=== PATIENT | male | born 1955 | race Caucasian/White ===

== ENCOUNTER 2025-07-24 04:25 | Inpatient (IN) | payer OTHER, MEDICARE ==
[~2025-07-24] VITALS: Ht 185.4 cm; Wt 72.4 kg
--- NOTE | 2025-07-24 04:52 | ECG ---
[facility] Test Date: 2025-07-24 Test Time: 04:30:34 Pat Name: YUE ATKINS Department: ED Room: 0217T Gender: M Vehicle Body Builder: KIMO : [id number] Requested By: LUISITO PINON Order Number: [id number] Reading MD: Miguel A De Leon Measurements Intervals [place] Rate: 69 P: 51 KS: 150 QRS: 64 QRSD: 93 T: 109 QT: 381 QTc: 408 Interpretive Statements Sinus rhythm Nonspecific T abnormalities, lateral leads Electronically Signed On 07-26-2025 15:01:45 PST by Miguel A De Leon Please click the below link to view image of tracing.
[2025-07-24 04:55] VITALS: PULSE 77; RESP 18; O2SAT 98
--- NOTE | 2025-07-24 04:55 | ED.PDOC ---
HPI Comments 70 year old male who came to ER via EMS for chest pain. Patient has been having intermittent episodes of chest pains for the past 3 days, is severely worse with a few hours ago so patient went to [facility]. Diagnosis done showed elevated troponin levels. So patient transferred here for further evaluation and management Chief Complaint: Chest Pain Time Seen by MD: 04:55 Reviewed Notes: [employer] Efficient [employer]er Notes Allergies: Coded Allergies: NO KNOWN ALLERGIES (Unverified , 07/24/25) Information Source: Patient Mode of Arrival: EMS Severity: Moderate Timing: Days Duration: Intermittent Past Medical History PAST MEDICAL HISTORY: COPD, High Lipids, HTN Surgical History: Denies all surgeries Family History Family History: Reviewed,noncontributory to illness Social History Smoker: Non-Smoker Alcohol: Denies ETOH Use Drugs: Denies Drug Use Lives In: Home Constitutional: denies: chills, diaphoresis, fatigue, fever, malaise, sweats, weakness, others EENTM: denies: blurred vision, double vision, ear bleeding, ear discharge, ear drainage, ear pain, ear ringing, eye pain, eye redness, hearing loss, mouth pain, mouth swelling, nasal discharge, nose bleeding, nose congestion, nose pain, photophobia, tearing, throat pain, throat swelling, voice changes, others Respiratory: reports: shortness of breath; denies: cough, hemoptysis, orthopnea, SOB at rest, SOB with excertion, stridor, wheezing, others Cardiovascular: reports: chest pain; denies: dizzy spells, diaphoresis, Dyspnea on exertion, edema, irregular heart beat, left arm pain, lightheadedness, palpitations, PND, syncope, others Gastrointestinal: denies: abdomen distended, abdominal pain, blood streaked bowels, constipated, diarrhea, dysphagia, difficulty swallowing, hematemesis, melena, nausea, poor appetite, poor fluid intake, rectal bleeding, rectal pain, vomiting, others Genitourinary: denies: burning, dysuria, flank pain, frequency, hematuria, incontinence, penile discharge, penile sore, pain, testicle pain, testicle swelling, urgency, others Neurological: denies: dizziness, fainting, headache, left sided numbness, left sided weakness, numbness, paresthesia, pre-existing deficit, right sided numbnes s, right sided weakness, seizure, speech problems, tingling, tremors, weakness, others Musculoskeletal: denies: back pain, gout, joint pain, joint swelling, muscle pain, muscle stiffness, neck pain, others Integumetry: denies: bruises, change in color, change in hair/nails, dryness, laceration, lesions, lumps, rash, wounds, others Allergic/Immunocompromised: denies: Difficulty Healing, Frequent Infections, Hives, Itching, others Hematologic/Lymphatic: denies: anemia, blood clots, easy bleeding, easy bruising, swollen glands, others Endocrine: denies: excessive hunger, excessive sweating, excessive thirst, excessive urination, flushing, intolerance to cold, intolerance to heat, unexplained weight gain, unexplained weight loss, others Psychiatric: denies: anxiety, bipolar disorder, depression, hopeless, panic disorder, schizophrenia, sleepless, suicidal, others Physical Exam General Appearance: No Apparent Distress, Normal HEENT: Normal ENT Inspection, Pharynx Normal, TMs Normal Neck: Full Range of Motion, Non-Tender, Normal, Normal Inspection Respiratory: Chest Non-Tender, Lungs Clear, No Accessory Muscle Use, No Respiratory Distress, Normal Breath Sounds Cardiovascular: No Edema, No JVD, No Murmur, No Gallop, Normal Peripheral Pulses, Regular Rate/Rhythm Breast Exam: Deferred Gastrointestinal: No Organomegaly, Non Tender, No Pulsatile Mass, Normal Bowel Sounds, Soft Genitalia: Deferred Pelvic: Deferred Rectal: Deferred Extremities: No calf tenderness, Normal capillary refill, Normal inspection, Normal range of motion, Non-tender, No pedal edema Musculoskeletal : Apperance: Normal Neurologic: Alert, pinion polisher II-XII nml as Tested, No Motor Deficits, Normal Affect, Normal Mood, No Sensory Deficits Cerebellar Function: Normal Reflexes: Normal Skin: Dry, Normal Color, Warm Lymphatic: No Adenopathy Was a procedure done? Was a procedure done?: No CP Differential Dx Differential Diagnosis: Angina, Anxiety / Panic Attack Differential Diagnosis: Angina, Chest Wall Pain, Costochondritis, Esophageal reflux/spasm, Gastritis, Myocardial Infarction X-Ray, Labs, Meds, VS Vital Signs Date Time Temp Pulse Resp B/P (MAP) Pulse Ox O2 Delivery O2 Flow Rate FiO2 07/24/25 05:21 70 07/24/25 04:55 98.1 75 18 144/94 (111) 98 98.1 07/24/25 04:55 77 18 98 Room Air* 0 21 07/24/25 04:40 97.6 74 16 136/84 96 97.6 07/24/25 04:30 69 Time of 1ST Reevaluation: 04:40 Reevaluation 1ST: Unchanged Patient Education/Counseling: Diagnosis, Treatment Family Education/Counseling: No Family Present SEPSIS Sepsis Screen Physician Orders Complete Blood Count (07/24/25 04:37) Chest Portable (07/24/25 04:37) Comprehensive Metabolic Panel (07/24/25 04:37) PTPTT (07/24/25 04:37) B-Type Natriuretic Peptide (07/24/25 04:37) Troponin-I Hs (07/24/25 04:37) Troponin-I Hs (07/24/25 05:37) Troponin-I Hs (07/24/25 07:37) Vital Signs Date Time Temp Pulse Resp B/P (MAP) Pulse Ox O2 Delivery O2 Flow Rate FiO2 07/24/25 05:21 70 07/24/25 04:55 98.1 75 18 144/94 (111) 98 98.1 07/24/25 04:55 77 18 98 Room Air* 0 21 07/24/25 04:40 97.6 74 16 136/84 96 97.6 07/24/25 04:30 69 Departure 1 Departure Time of Disposition: 05:59 Impression: Primary Impression: Acute coronary syndrome Disposition: ADMITTED INPATIENT Admit to: [facility] Condition: Guarded Discharged With: Self Comments Patient transferred from outside hospital with chest pain and elevated troponin. Patient was given some morphine prior to arrival and arrives chest pain-free. Repeat lab work and chest x-ray were performed. Patient will need to be admitted for supportive care and further cardiac workup Critical Care Note Critical Care Time?: Yes (35 min-critical care time only) Critical care comment: Total critical care time: Approximately 36 minutes Due to a high probability of clinically significant, life threatening deterioration, the patient required my highest level of preparedness to intervene emergently and I personally spent this critical care time directly and personally managing the patient. This critical care time included obtaining a history; examining the patient; pulse oximetry; ordering and review of studies; arranging urgent treatment with development of a management plan; evaluation of patient's response to treatment; frequent reassessment; and, discussions with other providers. This critical care time was performed to assess and manage the high probability of imminent, life-threatening deterioration that could result in multi-organ failure. It was exclusive of separately billable procedures and treating other patients. Stability Stability form required: No Heart Score Heart Score: Heart Score Response (Comments) Value History Moderate Suspicious 1 EKG Repolarization Disturb 1 Age >65 2 Risk Factors >3 or Hx ASHD 2 Troponin 1-2 x's Normal limit 1 Total 7 I personally scribed for LUISITO PINON MD ([email or web address]) on 07/24/25 at 04:55. Electronically submitted by William Montilla ([email or web address]). LUISITO PINON MD Jul 24, 2025 04:55
--- NOTE | 2025-07-24 05:40 | DVH ---
CHEST RADIOGRAPH Indication: SOB Technique: Single frontal view of the chest was obtained Comparison: XR CHEST 1 VIEW on DOS: 07/23/25, XR CHEST 1 VIEW on DOS: 06/06/21 IMPRESSION: There are low lung volumes. Basilar interstitial prominence. No focal airspace opacity, effusion, or pneumothorax.
[2025-07-24 06:54] LABS: Alanine Aminotransferase 13 U/L (7-40); Alkaline Phosphatase 89 U/L (46-116); Anion Gap 8 (5-15); BUN/Creatinine Ratio 9.8 (10.0-20.0); Blood Urea Nitrogen 10 mg/dL (9-23); Calcium 9.5 mg/dL (8.7-10.4); Carbon Dioxide 22 mmol/L (20-31); Glucose 93 mg/dL (74-106); Potassium 4.7 mmol/L (3.5-5.1); Sodium 139 mmol/L (136-145); Total Protein 6.9 g/dL (5.7-8.2)
[2025-07-24 06:55] LABS: Albumin 4.5 g/dL (3.2-4.8); Bilirubin, Total 0.7 mg/dL (0.2-1.0)
[2025-07-24 07:02] LABS: Chloride 109 mmol/L (98-107)
[2025-07-24] MEDS: MORPHINE SULFATE 4 MG/ML SYR/VIAL IV ONE (07:02)
[2025-07-24] MEDS: ONDANSETRON HCL 4 MG/2 ML VIAL IV ONE (07:02)
[2025-07-24] MEDS: NITROGLYCERIN 0.4 MG SL TAB SL ONE ×2 (07:03)
[2025-07-24] MEDS ORDERED: MORPHINE SULFATE INJ 2 MG/ml SYRG IV PRN (08:30)
[2025-07-24] MEDS ORDERED: NITROGLYCERIN 0.4 MG SL TAB SL PRN (08:30)
[2025-07-24 08:35] VITALS: PULSE 90; RESP 15; O2SAT 94
[2025-07-24 09:00] VITALS: BP 118/86; PULSE 90; RESP 15; TEMP 98; O2SAT 94
[2025-07-24 09:07] LABS: Hematocrit 49.3 % (41.0-53.0); Hemoglobin 16.3 g/dL (13.5-17.5); Mean Corpuscular Hemoglobin 30.4 pg (28.0-32.0); Mean Corpuscular Volume 91.5 fL (80.0-100.0); Nucleated Red Blood Cells % 0.1 %
--- NOTE | 2025-07-24 09:12 | CONS ---
Pharmacy Clinical Information: HEPARIN PER ACS PROTOCOL: APTT and CBC drawn at 0844 on to start Heparin per ACS protocol. Bolus of 4000 units + starting rate of 1000 units per hour (10mL/hr). Orders read back and confirmed with ARIELA Brar @0904. Next APTT scheduled for 1500. BRENT MCKINNON PHARMACIST Jul 24, 2025 09:12
[2025-07-24] MEDS: HEPARIN DRIP/D5W 100UNITS/ML 250 ML IV SCH ×3 (09:13→16:18)
[2025-07-24] MEDS: HEPARIN SODIUM (PORCINE) 5000 UNITS/ML 1ML VIAL IV ONE ×2 (09:14→16:17)
[2025-07-24] MEDS: PANTOPRAZOLE 40 MG/10 ML VIAL INJ IV SCH (09:15)
[2025-07-24 09:21] LABS: INR 1.03 (0.9-1.15); Partial Thromboplastin Time 26.9 SEC (24.5-34.5); Prothrombin Time 10.9 sec (9.3-11.8)
[2025-07-24] MEDS: ATORVASTATIN 20 MG TAB PO ONE (09:40)
--- NOTE | 2025-07-24 09:44 | DVHHPRES ---
History of Present Illness Resident Creating Document: ELIS ORTIZ RESIDENT History of Present Illness Patient is a 70-year-old male was brought by EMS to the ED with a chief complaint of chest pain and was transferred from [facility]. Patient reported she started to have chest pain about 3-4 days ago when he was moving in his mattress, reported chest pain to be substernal across his whole chest, pressure-like, nonradiating, intermittent worsens on exertion and improves with rest, improved on sublingual nitroglycerin. Patient has a history of COPD, 50 pack year smoking history but denied any history of previous [place], stroke, hypertension. On arrival patient's EKG was seen to be sinus rhythm without any ST or T-wave changes, troponins elevated and trended up. Patient will be admitted for further evaluation of likely NSTEMI type 1 Medical history: COPD, hyperlipidemia, PTSD Surgical history: Left knee surgery, jaw surgery, cervical spine surgery Social history: Patient quit drinking about 4 months ago, quit smoking 6-7 years ago but has a history of 50 pack year tobacco use, occasional marijuana use, denies any other drug use Family history: Mother has diabetes, brain hemorrhage in father Home medications: Quetiapine, albuterol as needed, maintenance inhaler Review of Systems Review of Systems Patient seen and examined at bedside Currently denies any chest pain, nausea, vomiting No shortness of breath while on 2 L oxygen Denies any fever, chills, diarrhea,, constipation, dysuria Allergies: Coded Allergies: NO KNOWN ALLERGIES (Unverified , 07/24/25) Medications Current Medications Medications Dose Ordered Sig/Delfin Route Start Time Stop Time Status Last Admin Dose Admin Nitroglycerin 0.4 mg Q5MINP PRN SL 07/24/25 08:30 Morphine Sulfate 2 mg Q30M PRN IV 07/24/25 08:30 Levalbuterol HCl 0.625 mg Q8HR NEB 07/24/25 14:00 Ipratropium [place] 0.5 mg Q8HR NEB 07/24/25 14:00 Ondansetron HCl 4 mg Q6HPRN PRN IV 07/24/25 08:30 Pantoprazole Sodium 40 mg DAILY IV 07/24/25 10:00 07/24/25 09:15 40 MG Heparin Sodium/ Dextrose 250 ml @ 10 mls/hr Q24H IV 07/24/25 08:30 07/24/25 09:13 10 MLS/HR Atorvastatin Calcium 80 mg HS PO 07/25/25 22:00 Aspirin 81 mg DAILY PO 07/25/25 10:00 Exam Vital Signs Vital Signs Date Time Temp Pulse Resp B/P (MAP) Pulse Ox O2 Delivery O2 Flow Rate FiO2 07/24/25 08:35 90 15 94 Nasal Cannula* 2 28 07/24/25 08:35 98.3 118/86 (97) 98.3 Exam Skin - Patients skin is warm and dry. HEENT - normocephalic, atraumatic, moist mucous membranes, no conjunctival pallor, no scleral icterus. Neck - full ROM, no LAD, no JVD Pulmonary - B/L clear breath sounds without any wheezing or rales cardiovascular - regular S1,S2 heard, no added sounds, no murmurs heard. GI - soft, nontender abdomen. Bowel sounds normoactive Neurological - Patient is A/O X 4 . Bilateral upper extremity strength 5/5, bilateral lower extremity strength 5/5, no facial droop, normal speech, no tremor, no sensory deficiets. Labs/Xrays Labs Test 07/24/25 09:25 07/24/25 08:48 07/24/25 08:44 07/24/25 06:16 Range/Units White Blood Count 10.8 4.4-10.8 10^3/uL Red Blood Count 5.38 4.5-5.90 10^6/uL Hemoglobin 16.3 13.5-17.5 g/dL Hematocrit 49.3 41.0-53.0 % Mean Corpuscular Volume 91.5 80.0-100.0 fL Mean Corpuscular Hemoglobin 30.4 28.0-32.0 pg Mean Corpuscular Hemoglobin Concent 33.2 32.0-36.0 g/dL Red Cell Distribution Width 13.8 11.8-14.3 % Platelet Count 211 140-450 10^3/uL Mean Platelet Volume 9.1 6.9-10.8 fL Neutrophils (%) (Auto) 72.9 37.0-80.0 % Lymphocytes (%) (Auto) 19.2 10.0-50.0 % Monocytes (%) (Auto) 6.9 0.0-12.0 % Eosinophils (%) (Auto) 0.3 0.0-7.0 % Basophils (%) (Auto) 0.7 0.0-2.0 % Neutrophils # (Auto) 7.9 1.6-8.6 10 ^3/uL Lymphocytes # (Auto) 2.1 0.4-5.4 10 ^3/uL Monocytes # (Auto) 0.7 0-1.3 10 ^3/uL Eosinophils # (Auto) 0 0-0.8 10 ^3/uL Basophils # (Auto) 0.1 0-0.2 10 ^3/uL Nucleated Red Blood Cells 0.1 % Prothrombin Time 10.9 9.3-11.8 sec Prothrombin Time INR 1.03 0.9-1.15 Activated Partial Thromboplast Time 26.9 24.5-34.5 SEC B-Type Natriuretic Peptide 139.86 0-100 pg/mL Sodium Level 139 136-145 mmol/L Potassium Level 4.7 3.5-5.1 mmol/L Chloride Level 109 H 98-107 mmol/L Carbon Dioxide Level 22 20-31 mmol/L Anion Gap 8 5-15 Blood Urea Nitrogen 10 9-23 mg/dL Creatinine 1.02 0.700-1.30 mg/dL Glomerular Filtration Rate Calc 79 >90 mL/min BUN/Creatinine Ratio 9.8 L 10.0-20.0 Serum Glucose 93 74-106 mg/dL Calcium Level 9.5 8.7-10.4 mg/dL Total Bilirubin 0.7 0.2-1.0 mg/dL Aspartate Amino Transferase (AST) 36 13-40 U/L Alanine Aminotransferase (ALT) 13 7-40 U/L Alkaline Phosphatase 89 46-116 U/L Total Protein 6.9 5.7-8.2 g/dL Albumin 4.5 3.2-4.8 g/dL SEPSIS Sepsis Screen Date sepsis recognized/suspect: Jul 24, 2025 Time Sepsis recognized/suspect: 729 Recent Procedure: No On Antibiotic Therapy: No Respiratory Rate >20: No Heart Rate >90: No Temp<36 C (96.8 F) or >38.3 C: No SBP <90 or MAP <65 mmHG: No New Acute Mental Status Change: No Is the patient on CPAP, BIPAP,: No Physician Orders Chest Portable (07/24/25 04:37) Troponin-I Hs (07/24/25 05:37) Admit (07/24/25 08:28) Nitroglycerin Sublingual (Ntrostat Subli (07/24/25 08:30) Morphine Sulfate Injection (07/24/25 08:30) Oxygen By Nasal Cannula (07/24/25 08:28) Stat Ekg For Chest Pain (07/24/25 08:28) Notify Md Of Changes From Base (07/24/25 08:28) Financial Specialist For 24 Hours (07/24/25 08:28) Emergency Dysrhythmia Protocol (07/24/25 08:28) Rhythm Strips Once Every Shift (07/24/25 08:28) Levalbuterol Hcl (Xopenex Medneb) (07/24/25 14:00) Ipratropium Medneb (Atrovent Medneb) (07/24/25 14:00) Ondansetron Hcl (Zofran) (07/24/25 08:30) Pantoprazole (Protonix) (07/24/25 10:00) Rapid Influenza A&B (07/24/25 08:28) Covid19 Antigen Ana (07/24/25 ) Urinalysis (07/24/25 08:28) Platelet Monitoring (07/24/25 08:28) Heparin Per Standardized Proce (07/24/25 08:28) Discontinue All Im Injections (07/24/25 08:28) Heparin Drip/D5w 100units/Ml (07/24/25 08:30) Stat Ekg For Chest Pain (07/24/25 08:28) PTPTT (07/24/25 15:00) Complete Blood Count (07/25/25 04:00) Heparin Per Pharmacy Protocol (07/24/25 09:15) Atorvastatin (Lipitor) (07/25/25 22:00) * Cardiology Consult (07/24/25 09:16) Aspirin Enteric Coated Tablet (Ecotrin E (07/25/25 10:00) Vital Signs Date Time Temp Pulse Resp B/P (MAP) Pulse Ox O2 Delivery O2 Flow Rate FiO2 07/24/25 08:35 90 15 94 Nasal Cannula* 2 28 07/24/25 08:35 98.3 90 15 118/86 (97) 94 98.3 07/24/25 08:00 89 07/24/25 07:39 90 15 118/86 07/24/25 07:39 118/86 07/24/25 07:03 146/86 07/24/25 07:02 76 18 146/87 07/24/25 05:21 70 07/24/25 04:55 98.1 75 18 144/94 (111) 98 98.1 07/24/25 04:55 77 18 98 Room Air* 0 21 07/24/25 04:40 97.6 74 16 136/84 96 97.6 07/24/25 04:30 69 Laboratory Tests Test 07/24/25 08:44 White Blood Count 10.8 10^3/uL (4.4-10.8) Medications Medications Dose Ordered Sig/Delfin Route Start Time Stop Time Status Last Admin Dose Admin Aspirin 325 mg ONCE ONCE PO 07/24/25 07:00 07/24/25 07:01 DC 07/24/25 07:02 325 MG Heparin Sodium (Porcine) 4,000 units ONCE ONCE IV 07/24/25 08:30 07/24/25 08:59 DC 07/24/25 09:14 4,000 UNITS Heparin Sodium/ Dextrose 250 ml @ 10 mls/hr Q24H IV 07/24/25 08:30 07/24/25 09:13 10 MLS/HR Morphine Sulfate 4 mg ONCE ONCE IV 07/24/25 07:00 07/24/25 07:01 DC 07/24/25 07:02 4 MG Nitroglycerin 0.4 mg ONCE ONCE SL 07/24/25 07:00 07/24/25 07:01 DC 07/24/25 07:03 0.4 MG Ondansetron HCl 4 mg ONCE ONCE IV 07/24/25 07:00 07/24/25 07:01 DC 07/24/25 07:02 4 MG Pantoprazole Sodium 40 mg DAILY IV 07/24/25 10:00 07/24/25 09:15 40 MG Assessment/Plan Assessment/Plan Acute chest pain NSTEMI likely type 1 COPD, no exacerbation h/o PTSD - started on heparin drip - given loading dose of aspirin, atorvastatin - cardiology consult - duo nebs q.8 hours PUD prophylaxis: Protonix Goals of care discussed with the patient for over 19 minutes. Full code Time spent: 37 minutes Plan discussed with Dr. Jarquin Plan discussed with: Patient, Other (RN) My Orders Orders - ELIS ORTIZ RESIDENT Procedure Category Date Status Time Admit ADMIT 07/24/25 Transmitted 08:28 Nitroglycerin PHA 07/24/25 In Process Sublingual (Ntrostat 08:30 Morphine Sulfate PHA 07/24/25 In Process Injection 08:30 Oxygen By Nasal RT 07/24/25 Transmitted Cannula 08:28 Stat Ekg For Chest DARCY 07/24/25 In Process Pain 08:28 Notify Md Of Changes DARCY 07/24/25 In Process From Base 08:28 Financial Specialist For [facility] 07/24/25 In Process 24 Hours 08:28 Emergency Dysrhythmia [facility] 07/24/25 In Process Protocol 08:28 Rhythm Strips Once [facility] 07/24/25 In Process Every Shift 08:28 Levalbuterol Hcl PHA 07/24/25 In Process (Xopenex Medneb) 14:00 Ipratropium Medneb PHA 07/24/25 In Process (Atrovent Medneb) 14:00 Ondansetron Hcl PHA 07/24/25 In Process (Zofran) 08:30 Pantoprazole PHA 07/24/25 In Process (Protonix) 10:00 Rapid Influenza A&B LAB 07/24/25 In Process 08:28 Covid19 Antigen Ana LAB 07/24/25 In Process Urinalysis LAB 07/24/25 Logged 08:28 Platelet Monitoring DARCY 07/24/25 In Process 08:28 Heparin Per [facility] 07/24/25 In Process Standardized Proce 08:28 Discontinue All Im DARCY 07/24/25 In Process Injections 08:28 Heparin Drip/D5w PHA 07/24/25 In Process 100units/Ml 08:30 Stat Ekg For Chest DARCY 07/24/25 In Process Pain 08:28 PTPTT LAB 07/24/25 Logged 15:00 Complete Blood Count LAB 07/25/25 Verified 04:00 Heparin Per Pharmacy DARCY 07/24/25 In Process Protocol 09:15 Atorvastatin (Lipitor) PHA 07/25/25 In Process 22:00 * Cardiology Consult CONS 07/24/25 Transmitted 09:16 Aspirin Enteric PHA 07/25/25 In Process Coated Tablet 10:00 Date of Service: Jul 24, 2025 Billing Provider: TIFFANY JARQUIN MD Common Visit Codes: [id number] INP/OBS CARE (HIGH) Secondary Visit Codes: [id number] CARE PLAN 30 MINUTES ELIS ORTIZ RESIDENT Jul 24, 2025 09:44 TIFFANY JARQUIN MD Jul 24, 2025 23:17
[2025-07-24 09:49] LABS: COVID19 ANTIGEN SOFIA FIA NEGATIVE (NEGATIVE)
[2025-07-24] MEDS: ONDANSETRON HCL 4 MG/2 ML VIAL IV PRN (11:09)
[2025-07-24] MEDS: MORPHINE SULFATE 4 MG/ML SYR/VIAL IV PRN (11:10)
--- NOTE | 2025-07-24 11:27 | DVHINCON2 ---
KOMAL DUFFY Jude [facility] 07/24/25 1127: Date Seen: Jul 24, [address] Caballero Reason for Consultation NSTEMI History of Present Illness 70-year-old male presents to the ED via EMS as a transfer from [facility] for management of NSTEMI. The patient reports that several days ago he developed chest pressure described as burning type pain after moving his mattress. The pain persisted and gradually worsened, prompting him to seek care at [place] ED, where he was found to have NSTEMI. In our ED, the patient continues to report intermittent chest pressure. A 12 lead EKG demonstrates normal sinus rhythm without acute ischemic changes. Serial troponins remained significantly elevated at 2696/2759/2390, and he was started on heparin drip per ACS protocol. Chest x-ray is normal. Past medical history significant for COPD, hyperlipidemia, arthritis, carpal tunnel syndrome, PTSD, ex-smoker, and occasional marijuana use. Past Medical History As stated in HPI Past Surgical History Denies Family History Reviewed, non-contributory to the management of this case. Social History The patient lives at home, denies smoking, alcohol or illicit drugs abuse. Allergies: Coded Allergies: NO KNOWN ALLERGIES (Unverified , 07/24/25) Current Medications Current Medications Medications (Trade) Dose Ordered Sig/Delfin Route PRN Reason Start Time Stop Time Status Last Admin Nitroglycerin (Ntrostat Sublingual) 0.4 mg Q5MINP PRN SL FOR CHEST PAIN 07/24/25 08:30 Morphine Sulfate 2 mg Q30M PRN IV FOR CHEST PAIN 07/24/25 08:30 07/24/25 11:02 DC Levalbuterol HCl (Xopenex Medneb) 0.625 mg Q8HR NEB 07/24/25 14:00 Ipratropium [place] (Atrovent Medneb) 0.5 mg Q8HR NEB 07/24/25 14:00 Ondansetron HCl (Zofran) 4 mg Q6HPRN PRN IV NAUSEA / VOMITING 07/24/25 08:30 07/24/25 11:09 Pantoprazole Sodium (Protonix) 40 mg DAILY IV 07/24/25 10:00 07/24/25 09:15 Heparin Sodium/ Dextrose 250 ml @ 10 mls/hr Q24H IV 07/24/25 08:30 07/24/25 09:13 Atorvastatin Calcium (Lipitor) 80 mg HS PO 07/25/25 22:00 Aspirin (Ecotrin Enteric Coated Tablet) 81 mg DAILY PO 07/25/25 10:00 Morphine Sulfate 2 mg Q30M PRN IV FOR CHEST PAIN 07/24/25 11:15 07/24/25 11:10 Review of Systems Constitutional: No symptom reported Ears, Nose, & Throat: No symptom reported Eyes: No symptom reported Neurological: No symptoms reported Pulmonary/Respiratory: No symptom reported Cardiovascular: Chest pain Gastrointestinal: No symptom reported Genitourinary: No symptom reported Musculoskeletal: No symptom reported Skin: No symptom reported Psychiatric: No symptom reported Endocrine: No symptom reported Hematologic/Lymphatic: No symptom reported Vital Signs Vital Signs Date Time Temp Pulse Resp B/P (MAP) Pulse Ox O2 Delivery O2 Flow Rate FiO2 07/24/25 11:10 85 11 148/60 07/24/25 10:00 99 07/24/25 09:00 98.0 2.0 28 98.0 07/24/25 08:35 Nasal Cannula* Physical Exam INITIAL VITAL SIGNS: Reviewed by me GENERAL: Alert and interactive. No acute distress. HEAD: Head is normocephalic and atraumatic. EYES: EOMI, PERRL. No scleral icterus. No conjunctival injection. ENT: Moist mucous membranes. NECK: Supple, No masses, Full range of motion. RESPIRATORY: No tachypnea. Clear breath sounds bilaterally. No wheezing, rales, rhonchi. CV: Regular rate and rhythm. No murmurs, rubs, or gallops. GI/: Active bowel sounds, soft, nondistended, nontender. No guarding. No rebound. No masses. No CVA tenderness. INTEGUMENTARY: Warm and dry. No obvious rashes. NEUROLOGIC: Alert and oriented. Face is symmetric. Speech is normal. Moves all extremities equally. Labs/Diagnostic Data Labs Test 07/24/25 09:25 07/24/25 08:48 07/24/25 08:44 07/24/25 06:16 Range/Units Troponin I High Sensitivity 2390 *H </=54 ng/L Influenza Type A Antigen Negative Negative Influenza Type B Antigen Negative Negative SARS-CoV-2 Antigen (Rapid) Negative NEGATIVE White Blood Count 10.8 4.4-10.8 10^3/uL Red Blood Count 5.38 4.5-5.90 10^6/uL Hemoglobin 16.3 13.5-17.5 g/dL Hematocrit 49.3 41.0-53.0 % Mean Corpuscular Volume 91.5 80.0-100.0 fL Mean Corpuscular Hemoglobin 30.4 28.0-32.0 pg Mean Corpuscular Hemoglobin Concent 33.2 32.0-36.0 g/dL Red Cell Distribution Width 13.8 11.8-14.3 % Platelet Count 211 140-450 10^3/uL Mean Platelet Volume 9.1 6.9-10.8 fL Neutrophils (%) (Auto) 72.9 37.0-80.0 % Lymphocytes (%) (Auto) 19.2 10.0-50.0 % Monocytes (%) (Auto) 6.9 0.0-12.0 % Eosinophils (%) (Auto) 0.3 0.0-7.0 % Basophils (%) (Auto) 0.7 0.0-2.0 % Neutrophils # (Auto) 7.9 1.6-8.6 10 ^3/uL Lymphocytes # (Auto) 2.1 0.4-5.4 10 ^3/uL Monocytes # (Auto) 0.7 0-1.3 10 ^3/uL Eosinophils # (Auto) 0 0-0.8 10 ^3/uL Basophils # (Auto) 0.1 0-0.2 10 ^3/uL Nucleated Red Blood Cells 0.1 % Prothrombin Time 10.9 9.3-11.8 sec Prothrombin Time INR 1.03 0.9-1.15 Activated Partial Thromboplast Time 26.9 24.5-34.5 SEC B-Type Natriuretic Peptide 139.86 0-100 pg/mL Sodium Level 139 136-145 mmol/L Potassium Level 4.7 3.5-5.1 mmol/L Chloride Level 109 H 98-107 mmol/L Carbon Dioxide Level 22 20-31 mmol/L Anion Gap 8 5-15 Blood Urea Nitrogen 10 9-23 mg/dL Creatinine 1.02 0.700-1.30 mg/dL Glomerular Filtration Rate Calc 79 >90 mL/min BUN/Creatinine Ratio 9.8 L 10.0-20.0 Serum Glucose 93 74-106 mg/dL Calcium Level 9.5 8.7-10.4 mg/dL Total Bilirubin 0.7 0.2-1.0 mg/dL Aspartate Amino Transferase (AST) 36 13-40 U/L Alanine Aminotransferase (ALT) 13 7-40 U/L Alkaline Phosphatase 89 46-116 U/L Total Protein 6.9 5.7-8.2 g/dL Albumin 4.5 3.2-4.8 g/dL PROCEDURE(s): CXRP - CHEST PORTABLE REASON: SOB ORDER NUMBER(s): [id number], ACCESSION NUMBER(s): [id number] CHEST RADIOGRAPH Indication: SOB Technique: Single frontal view of the chest was obtained Comparison: XR CHEST 1 VIEW on DOS: 07/23/25, XR CHEST 1 VIEW on DOS: 06/06/21 IMPRESSION: There are low lung volumes. Basilar interstitial prominence. No focal airspace opacity, effusion, or pneumothorax. Assessment NSTEMI possible type 1 Rule out acute coronary syndrome--HEART score 7 Hyperlipidemia COPD without exacerbation PTSD Marijuana use Ex tobacco use Plan/Recommendation (Dr. Tompkins ): * Continue heparin infusion per ACS protocol * asa, statins * Continue to monitor on telemetry * Continue to monitor EKG changes * Scheduled for left heart catheterization on 07/25/25 * Obtain echocardiogram * Counseled on marijuana use This medical document was created using an electronic medical record system with voice recognition software and computerized dictation system. Although this document has been carefully reviewed, there might still be some phonetic and typographical errors. Occasional wrong-word or ``sound-alike substitutions may have occurred due to the inherent limitations of voice recognition software. These areas are purely typographical due to imperfections of the software programs and do not reflect any compromise in the patient's medical care. Please read the chart carefully and recognize, using context, where these substitutions have occurred. Plan discussed with: Patient Plan discussed with: Patient NYHA Physical activity limitations: Class1(None)absent sob, Date of Service: Jul 24, 2025 Billing Provider: NORMAN TOMPKINS MD Cardiology Common Codes: NOT BILLABLE Cardiology Consultation Codes: [id number] CONSULT <60MIN NORMAN TOMPKINS MD 07/24/25 1308: Allergies: Coded Allergies: NO KNOWN ALLERGIES (Unverified , 07/24/25) Plan/Recommendation pt transferred here for nstemi from [facility] pt unsure [facility] nstemi, ecg is stable and unremarkable now echo [facility] tomorrow, pt agrees to plan, full informed consent obtained Plan discussed with: Patient KOMAL DUFFY Jude LOPEZ Jul 24, 2025 11:27 NORMAN TOMPKINS MD Jul 24, 2025 13:08
[2025-07-24 12:12] LABS: Triglycerides 113 mg/dL (< 150)
[2025-07-24 12:14] LABS: Cholesterol 117 mg/dL (< 200); HDL Cholesterol 41 mg/dL (40-59)
--- NOTE | 2025-07-24 12:14 | DVHSR ---
APPROVED REPORT EXAM: Two-dimensional and M-mode echocardiogram with Doppler and color Doppler. Blood Pressure: 148/60 mmHg INDICATION NSTEMI RISK FACTORS Height: 71, Weight: 176 DIMENSIONS LVDd 4.6 (3.8-5.7cm) LA (2D) 3.7 (1.9-4.0cm) Aortic Root 4.2 (2.0-3.7cm) LVDs 3.4 (2.5-4.0cm) LA (MM) (1.9-4.0cm) Aortic Cusp Exc 1.8 (1.5-2.0cm) EF (%) 50.0 (55-70%) Rt. Atrium (1.9-4.0cm) Asc. Aorta cm Mitral Valve Mitral Mitral Stenosis E wave 0.48m/s MV Mean GR. mmHg A wave 0.86m/s MV Peak GR. mmHg E/A ratio 0.6 2D MVA cm2 DECEL Time 146ms PRESS 1/2 Time 75ms IVRT ms Dop MVA 2.95cm2 Aortic Valve Aortic Valve Aortic Stenosis V1 1.03m/s AO Mean GR. 3mmHg V2 1.15m/s AO Peak GR. 5mmHg LVOT Diameter 2.3 (1.8-2.4cm) Doppler DB 3.72cm2 Pulmonic Valve V2 0.78m/s Other Information Technically limited study due to body habitus. Conclusion lvef 45% apex is hypokinetic mild LVH low normal rv functoin mild mAC
[2025-07-24 13:42] VITALS: PULSE 75; RESP 14; O2SAT 99
[2025-07-24] MEDS: LEVALBUTEROL HCL 1.25 MG/3 ML NEB NEB SCH (13:42)
[2025-07-24] MEDS: IPRATROPIUM BROM 0.5 MG/2.5ML INH SOL NEB SCH (13:42)
[2025-07-24 13:48] VITALS: PULSE 77; RESP 16; O2SAT 100
[2025-07-24 15:40] LABS: INR 1.04 (0.9-1.15); Partial Thromboplastin Time 32.5 SEC (24.5-34.5); Prothrombin Time 11.0 sec (9.3-11.8)
--- NOTE | 2025-07-24 16:08 | CONS ---
Pharmacy Clinical Information: HEPARIN PER ACS PROTOCOL: APTT result of 32.5 received from draw on 07/24 @1507. Bolus of 5000 units + increase rate 300 units per hour. New rate is 1300 units per hour (13ml/hr). Orders read back and confirmed with RN Ivanna @1605. Next APTT scheduled for 2199. BRENT MCKINNON PHARMACIST Jul 24, 2025 16:08
[2025-07-24 18:28] LABS: Urine Protein, UAD TRACE (Negative)
--- NOTE | 2025-07-24 19:13 | DVH ---
CHEST RADIOGRAPH Indication: CENTRAL LINE PLACEMENT Technique: Single frontal view of the chest was obtained Comparison: XY CHEST PORTABLE on DOS: 07/24/25, XR CHEST 1 VIEW on DOS: 07/23/25, XR CHEST 1 VIEW on DOS: 06/06/21 FINDINGS: Lines and Tubes: Non right internal jugular catheter in place with the tip in the superior vena cava above the right atrium. e Lungs: There is a 2.2 cm spiculated pulmonary density the left lung base. This most likely represents atelectasis. Airways not seen on the study 10 on 07/24/2025. Pleura: No effusion. No pneumothorax. Cardiomediastinal contours: Unremarkable Bones: No acute osseous abnormality. IMPRESSION: 1. Right internal jugular catheter in place in the superior vena cava above the right atrium. No pneumothorax. 2. 2.2 cm area of atelectasis simulating a spiculated mass. This was not present on an earlier study same day.
[2025-07-24 19:25] VITALS: PULSE 72; RESP 15; O2SAT 96
--- NOTE | 2025-07-24 21:26 | DVHNC2 ---
Central Line Recorder of insertion practice: Cement Mason Occupation of long term care phlebotomist: Other (Resident physician) Indication: Inability to obtain IV Room prepared for procedure: Yes Cement Mason performed hand hygien: Yes Maximal sterile barrier precau: Mask/Eye shield, Sterile gown, Cap, Sterlie gloves, Large sterlie drape Skin Preparation: Providine iodine Skin preparation completely dr: Yes Insertion site: Right, Internal jugular Central line catheter type: Dbu-wvaqjpeb-dee dialysis Number of lumens: 3 Central line exchanged over a: No Post Assessment: Chest X-Ray, Proper placement Informed consent obtained: Yes Date of Service: Jul 24, 2025 Billing Provider: LUISITO PINON MD Common Visit Codes: PROCEDURE ONLY ELIS ORTIZ RESIDENT Jul 24, 2025 21:26
[2025-07-24 22:44] LABS: INR 1.07 (0.9-1.15); Prothrombin Time 11.3 sec (9.3-11.8)
[2025-07-24 22:50] LABS: Partial Thromboplastin Time 96.3 SEC (24.5-34.5)
[2025-07-25] VITALS (17 sets, daily range): BP systolic 120–141; BP diastolic 65–88; PULSE 67–86; RESP 10–20; TEMP 97.2–98.7; O2SAT 92–100
[2025-07-25] MEDS ORDERED: HEPARIN DRIP/D5W 100UNITS/ML 250 ML IV SCH (00:30)
[2025-07-25] MEDS ORDERED: QUET200T45 PO (01:35)
[2025-07-25] MEDS ORDERED: ATOR-47 PO (01:36)
[2025-07-25 08:32] LABS: Hematocrit 43.5 % (41.0-53.0); Hemoglobin 14.4 g/dL (13.5-17.5); Mean Corpuscular Hemoglobin 30.3 pg (28.0-32.0); Mean Corpuscular Volume 91.4 fL (80.0-100.0); Nucleated Red Blood Cells % 0.1 %
[2025-07-25] MEDS: ASPirin-EC 81 mg tab PO SCH (10:54)
[2025-07-25] MEDS: MIDAZOLAM HCL 2MG/2ML 2ml VIAL (1mg/ml) ONE ×2 (14:27→15:35)
[2025-07-25] MEDS: fentaNYL CITRATE 100 MCG/2 ML VL ONE (14:27)
[2025-07-25] MEDS: LIDOCAINE 2%HCL (LOCAL ANESTH.) INJ 20ML MDV ONE (14:27)
[2025-07-25] MEDS: ANGIOMAX 250 MG VIAL IV ONE (14:28)
[2025-07-25] MEDS: SODIUM CHL 0.9% 50 ML ONE (14:28)
[2025-07-25] MEDS: IODIXANOL 320MG/ML 100ML BTL IV ONE ×2 (15:09→15:22)
[2025-07-25] MEDS: ATROPINE SULF 1 MG/10ml SYR ONE (15:20)
[2025-07-25] MEDS: TICAGRELOR 90 MG TAB ONE (15:50)
--- NOTE | 2025-07-25 15:56 | DVHPN2 ---
Progress Note Date Seen: Jul 25, 2025 Medical Necessity Reason Pt with a Central, PICC or Fol: No Subjective Patient reports: Feels better Other Systems: sp cath and complex pci Objective vital signs Vital Sign Date Time Temp Pulse Resp B/P (MAP) Pulse Ox O2 Delivery O2 Flow Rate FiO2 07/25/25 13:00 98.7 70 20 129/82 (98) 98 98.7 07/25/25 07:04 Nasal Cannula* 2 28 Total Intake and Output 07/24/25 07/24/25 07/25/25 14:59 22:59 06:59 Intake Total 0 ml Balance 0 ml medications Current Medications Medications Dose Ordered Sig/Delfin Route Start Time Stop Time Status Last Admin Dose Admin Nitroglycerin 0.4 mg Q5MINP PRN SL 07/24/25 08:30 Levalbuterol HCl 0.625 mg Q8HR NEB 07/24/25 14:00 07/25/25 06:56 0.625 MG Ipratropium [place] 0.5 mg Q8HR NEB 07/24/25 14:00 07/25/25 06:56 0.5 MG Ondansetron HCl 4 mg Q6HPRN PRN IV 07/24/25 08:30 07/24/25 11:09 4 MG Pantoprazole Sodium 40 mg DAILY IV 07/24/25 10:00 07/25/25 10:54 40 MG Atorvastatin Calcium 80 mg HS PO 07/25/25 22:00 Aspirin 81 mg DAILY PO 07/25/25 10:00 07/25/25 10:54 81 MG Morphine Sulfate 2 mg Q30M PRN IV 07/24/25 11:15 07/25/25 10:59 2 MG Examination: GENERAL:Abnormal, HEENT:Abnormal, LUNGS:Abnormal, CVS:Abnormal, ABDOMEN:Abnormal laboratory and microbiology Laboratory Tests 07/25/25 06:24 07/24/25 06:16 Test 07/24/25 06:16 Range/Units Serum Glucose 93 74-106 mg/dL Problem List/Assessment/Plan Problem List/Assessment/Plan nstemi acs cad htn HL s/p pci to RCA 99% dissected vessel and placement of 2 ESTELLA for acute OK cont dapt statin fu with [facility] cards in 1 week after dc BB cont to monitor overnight Plan discussed with: Patient My Orders My Orders Orders - NORMAN TOMPKINS MD Procedure Category Date Status Time Cl Left Heart Cath CL 07/25/25 Taken 07:25 Date of Service: Jul 25, 2025 Billing Provider: NORMAN TOMPKINS MD Common Visit Codes: NOT BILLABLE NORMAN TOMPKINS MD Jul 25, 2025 15:56
--- NOTE | 2025-07-25 16:02 | DVHOP2 ---
Operative Report Operative Report CARDIAC BASE PLY HAND PROCEDURE REPORT [place], [place] Date of Service: 07/25/25 Office Services Associate: Norman Tompkins MD PROCEDURES PERFORMED: Coronary angiogram, left heart catheterization, conscious sedation administration and supervision, less than 15 minutes; fluoroscopy use and interpretation. sedation 15-30 mins, acute SC intervention, PTCA1 vessel, PCI 1 vessel, IVL shockwave lithotripsy, US guidance vascular access saved to pacs system PREOPERATIVE DIAGNOSES:NSTEMI POSTOP DIAGNOSIS: NSTEMI DESCRIPTION OF PROCEDURE: The patient or appropriate family signed informed consent understanding the risks, benefits and alternatives of the procedure, they wished to proceed. The patient was brought to the cardiac cathode washer in n.p.o. state. The patient was prepped in a sterile fashion. Sedation was used per cardiac cath protocol.THERE WERE NO RADIAL KITS SO WE ELECTED FOR FEMORAL ACCESS. I administered 6 mL of 2% lidocaine to the right groing. Under fluor and US guidance I identified a patent but calcified R INTERVENTION MANAGER and . With an antegrade front wall puncture. I cannulated the right common femoral artery and placed a 6-Lao Glidesheath. . Next, iliofemoral angio performed showing appropriate arteriotomy site. Next, a - 6French JR4 JL4 and JR4 guide and were used for coronary angiogram At the completion of procedure, all guides and wires were removed, and there were no immediate complications. 6 f angioseal used for closure FINDINGS: RCA: Moderate vessel off the right sinus of Valsalva, there is a long dissected mid to distal RCA 99% stenosis . this lesion is close to 50 mm in length and very tight . LEFT MAIN: Moderate size left main, it bifurcates into LAD and circumflex. no severe stenosis . CIRCUMFLEX: Moderate caliber vessel coming off the left main with no flow limiting stenosis. LAD: LAD is a moderate caliber vessel coming of the left main. no severe stenosis. D1 has a 80% stenosis INTERVENTION: We decided to proceed with coronary intervention. I started with a 6F __JR4 __ Guide to intubate the __RCA . Angiomax bolus and gtt was started. Following this, I decided to wire using an .014 BMW across the culprit lesion with ease. At this time, we tried to use a 2.0 balloon but it wouldnt cross so we inflated this baloon up to 8 atms twice over 15 seconds. then i used a 1.5 x 15 mm ba lloon and inflated to 20 atms with 3 inflations. then i brought a 2.5 x 20 mm balloon and inflated to 16 atms with 3 separate inflatiosn. we performed balloon angioplasty with a _2.5 x 12 mm balloon by [employer] IVL balloon up to __3__ ATMS over __15__ seconds with __10 pulses each for total of 40 pulses__ number of inflations. Following this, I decided to place a stent using a 3.0 x 38 mm distal stent mm onyx____ stent inflated up to __18___ ATMS over 15 seconds with two separate inflations. Following this, the stent balloon removed and angio performed showing 0% residual stenosis. Then i placed a 3.0 x 26 mm ESTELLA with 2 mm overlap and inflated to 18 atms with 2 inflations each 15 seconds. then balloon removed and angio shows 0% stenosis. CONCLUSIONS: 1. sp pci to acutely dissected NSTEMI 99% high risk RCA leison and placement of 2 ESTELLA after intravascular lithotripsy PLAN: Aggressive risk factor modification and medical management for the patient. DAPT x 1 year uninterrupted NORMAN TOMPKINS MD Jul 25, 2025 16:02
--- NOTE | 2025-07-25 18:28 | DVHPNRES ---
Progress Note Date Seen: Jul 25, 2025 Resident Creating Document: LYNNE STAHL RESIDENT Medical Necessity Reason Pt with a Central, PICC or Fol: No Subjective Review of Systems Yoan Blackwell is a 70-year-old male who was brought by EMS to the ED with the chief complaint of chest pain and was transferred from [facility]. Patient reported he started to have chest pain about 3-4 days ago when he was moving in his mattress, reported chest pain to be substernal across his whole chest, pressure-like, nonradiating, intermittent , worsens on exertion and improves with rest, improved on sublingual nitroglycerin. Patient has a history of COPD, 50 pack year smoking history but denied any history of previous MT, stroke, hypertension. On arrival patient's EKG was seen to be sinus rhythm without any ST or T-wave changes, troponins elevated and trended up. Cardiology evaluated the patient and he underwent left heart catheterization today with placement of 2 stents in RCA. Medical history: COPD, hyperlipidemia, PTSD Surgical history: Left knee surgery, jaw surgery, cervical spine surgery Social history: Patient quit drinking about 4 months ago, quit smoking 6-7 years ago but has a history of 50 pack year tobacco use, occasional marijuana use, denies any other drug use Family history: Mother has diabetes, brain hemorrhage in father Home medications: Quetiapine, albuterol as needed, maintenance inhaler Allergies: No known allergies Patient seen and examined at bedside. Patient is alert and oriented to time, place person and responding to all questions. Eyes: No Pain, No Vision change, No Conjunctivae inflammation, No Eyelid inflammation, No Redness ENT: No Ear pain, No Ear discharge, No Nose pain, No Nose discharge, No Nose congestion, No Mouth pain, No Mouth swelling, No Throat pain, No Throat swelling Cardiovascular: No Chest Pain, No Palpitations, No Orthopnea, No Paroxysmal No Dyspnea, No Edema, No Lt Headedness Respiratory: No Cough, No Dry, No Shortness of breath, No SOB with exertion, No Wheezing, No Hemoptysis, No Pleuritic Pain, No Sputum Gastrointestinal: No Nausea, No Vomiting, No Abdominal Pain, No Diarrhea, No Constipation, No Melena, No Hematochezia Genitourinary: No Dysuria, No Frequency, No Incontinence, No Hematuria, No Retention Objective vital signs Vital Sign Date Time Temp Pulse Resp B/P (MAP) Pulse Ox O2 Delivery O2 Flow Rate FiO2 07/25/25 17:00 73 13 129/75 (93) 92 07/25/25 13:00 98.7 98.7 07/25/25 08:00 Nasal Cannula* 2 28 Total Intake and Output 07/24/25 07/24/25 07/25/25 15:00 23:00 07:00 Intake Total 0 ml Balance 0 ml medications Current Medications Medications Dose Ordered Sig/Delfin Route Start Time Stop Time Status Last Admin Dose Admin Nitroglycerin 0.4 mg Q5MINP PRN SL 07/24/25 08:30 Levalbuterol HCl 0.625 mg Q8HR NEB 07/24/25 14:00 07/25/25 06:56 0.625 MG Ipratropium [place] 0.5 mg Q8HR NEB 07/24/25 14:00 07/25/25 06:56 0.5 MG Ondansetron HCl 4 mg Q6HPRN PRN IV 07/24/25 08:30 07/24/25 11:09 4 MG Pantoprazole Sodium 40 mg DAILY IV 07/24/25 10:00 07/25/25 10:54 40 MG Atorvastatin Calcium 80 mg HS PO 07/25/25 22:00 Aspirin 81 mg DAILY PO 07/25/25 10:00 07/25/25 10:54 81 MG Morphine Sulfate 2 mg Q30M PRN IV 07/24/25 11:15 07/25/25 10:59 2 MG Clopidogrel Bisulfate 75 mg DAILY PO 07/27/25 10:00 Examination General Appearance: Cooperative. Well developed. Well nourished. NAD Head Exam: Normal inspection Neck Exam: Normal inspection. Non-tender. Normal alignment Pulmonary/Respiratory: Chest non-tender. Clear bilateral breath sounds, no crackles, no wheezing. Cardiovascular/Chest: Regular rate and rhythm. No murmurs. No JVD. Peripheral Pulses: 2+ Radial (R). 2+ Radial (L). 2+ Pedal (R). 2+ Pedal (L) Abdominal Exam: Normal bowel sounds. Soft. normal abdomen, no visible veins, Nontender. No hepatospenomegaly. No masses Ankle Exam: Negative ankle edema Lower extremities: Negative lower extremity edema Neuro/Mental Status: A&O x4. Coherent. Thoughts/Psych: Normal thought pattern. Appropriate mood and affect. Good judgement and insight Skin Exam: Normal inspection. Normal color. Warm. Dry laboratory and microbiology Laboratory Tests 07/25/25 06:24 07/24/25 06:16 Test 07/24/25 06:16 Range/Units Serum Glucose 93 74-106 mg/dL Labs and/or images reviewed: Labs reviewed by me, Image(s) reviewed by me Problem List/Assessment/Plan Problem List/Assessment/Plan # acute chest pain likely due to below # NSTEMI likely type 1 s/p PCI with 2 stents in RCA - tropes on arrival were 2676, 2759 and 2390 - BNP 139 - was given loading dose of aspirin and atorvastatin - echo showed LVEF 45%, hypokinetic apex, mild LVH - left heart catheterization on 07/25/2025- pci to acutely dissected NSTEMI 99% high risk RCA leison and placement of 2 ESTELLA after intravascular lithotripsy - DAPT for 1 year uninterrupted # COPD, no exacerbation - med nebs with ipratropium and levalbuterol q.8 hours PRN # dyslipidemia - lipitor 80 mg hs p.o. # history of PTSD Goals of care discussed with the patient for more than 20 minutes, full code Plan discussed with Dr. Jarquin Plan discussed with: Patient Date of Service: Jul 25, 2025 Billing Provider: TIFFANY JARQUIN MD Common Visit Codes: [id number] INP/OBS CARE(HIGH) LYNNE STAHL RESIDENT Jul 25, 2025 18:28 TIFFANY JARQUIN MD Jul 25, 2025 23:17
[2025-07-25] MEDS: ATORVASTATIN 20 MG TAB PO SCH (21:50)
[2025-07-26] VITALS (14 sets, daily range): BP systolic 102–115; BP diastolic 69–74; PULSE 83–99; RESP 16–18; TEMP 97.5–98.2; O2SAT 93–98
[2025-07-26] MEDS: CLOPIDOGREL BISULFATE 75 MG TAB PO ONE (05:26)
[2025-07-26 06:39] LABS: Hematocrit 42.4 % (41.0-53.0); Hemoglobin 14.3 g/dL (13.5-17.5); Mean Corpuscular Hemoglobin 30.3 pg (28.0-32.0); Mean Corpuscular Volume 90.1 fL (80.0-100.0); Nucleated Red Blood Cells % 0.1 %
[2025-07-26 07:11] LABS: Alkaline Phosphatase 74 U/L (46-116); Anion Gap 9 (5-15); BUN/Creatinine Ratio 13.5 (10.0-20.0); Blood Urea Nitrogen 13 mg/dL (9-23); Calcium 9.4 mg/dL (8.7-10.4); Carbon Dioxide 25 mmol/L (20-31); Chloride 107 mmol/L (98-107); Glucose 76 mg/dL (74-106); Potassium 3.8 mmol/L (3.5-5.1); Sodium 141 mmol/L (136-145); Total Protein 6.2 g/dL (5.7-8.2)
[2025-07-26 07:12] LABS: Albumin 3.9 g/dL (3.2-4.8); Bilirubin, Total 1.1 mg/dL (0.2-1.0)
[2025-07-26 07:19] LABS: Alanine Aminotransferase < 9 U/L (7-40)
[2025-07-26] MEDS: clonazePAM 0.5 MG TAB PO ONE ×2 (13:30→21:12)
[2025-07-26] MEDS: POLYETHYLENE GLYCOL 17 GM PWDR PO ONE (14:51)
[2025-07-26] MEDS ORDERED: METO25TA93 PO (15:52)
[2025-07-26] MEDS ORDERED: QUET200T45 PO (15:52)
[2025-07-26] MEDS ORDERED: CLOP75TA70 PO (15:52)
[2025-07-26] MEDS ORDERED: ATOR40TA52 PO (15:52)
[2025-07-26] MEDS ORDERED: ASPI-543 PO (15:52)
[2025-07-26] MEDS ORDERED: EMPA1TAB PO (17:01)
--- NOTE | 2025-07-26 17:10 | DVHDSRES ---
Discharge Summary Date of Admission Resident Creating Document: ELIS ORTIZ RESIDENT Jul 24, 2025 at 08:28 Date of Discharge: Jul 26, 2025 Admitting Diagnosis Acute chest pain NSTEMI likely type 1 COPD, no exacerbation h/o PTSD Wounds: none Labs/Diagnostic Data: Laboratory Results Test 07/26/25 05:32 07/24/25 22:07 07/24/25 18:00 07/24/25 09:25 White Blood Count 9.8 10^3/uL (4.4-10.8) Red Blood Count 4.71 10^6/uL (4.5-5.90) Hemoglobin 14.3 g/dL (13.5-17.5) Hematocrit 42.4 % (41.0-53.0) Mean Corpuscular Volume 90.1 fL (80.0-100.0) Mean Corpuscular Hemoglobin 30.3 pg (28.0-32.0) Mean Corpuscular Hemoglobin Concent 33.7 g/dL (32.0-36.0) Red Cell Distribution Width 13.6 % (11.8-14.3) Platelet Count 173 10^3/uL (140-450) Mean Platelet Volume 9.3 fL (6.9-10.8) Neutrophils (%) (Auto) 73.3 % (37.0-80.0) Lymphocytes (%) (Auto) 14.7 % (10.0-50.0) Monocytes (%) (Auto) 10.8 % (0.0-12.0) Eosinophils (%) (Auto) 1.0 % (0.0-7.0) Basophils (%) (Auto) 0.2 % (0.0-2.0) Neutrophils # (Auto) 7.2 10 ^3/uL (1.6-8.6) Lymphocytes # (Auto) 1.4 10 ^3/uL (0.4-5.4) Monocytes # (Auto) 1.1 10 ^3/uL (0-1.3) Eosinophils # (Auto) 0.1 10 ^3/uL (0-0.8) Basophils # (Auto) 0 10 ^3/uL (0-0.2) Nucleated Red Blood Cells 0.1 % Sodium Level 141 mmol/L (136-145) Potassium Level 3.8 mmol/L (3.5-5.1) Chloride Level 107 mmol/L (98-107) Carbon Dioxide Level 25 mmol/L (20-31) Anion Gap 9 (5-15) Blood Urea Nitrogen 13 mg/dL (9-23) Creatinine 0.96 mg/dL (0.700-1.30) Glomerular Filtration Rate Calc 85 mL/min (>90) BUN/Creatinine Ratio 13.5 (10.0-20.0) Serum Glucose 76 mg/dL (74-106) Calcium Level 9.4 mg/dL (8.7-10.4) Total Bilirubin 1.1 mg/dL (0.2-1.0) Aspartate Amino Transferase (AST) 25 U/L (13-40) Alanine Aminotransferase (ALT) < 9 U/L (7-40) Alkaline Phosphatase 74 U/L (46-116) Total Protein 6.2 g/dL (5.7-8.2) Albumin 3.9 g/dL (3.2-4.8) Prothrombin Time 11.3 sec (9.3-11.8) Prothrombin Time INR 1.07 (0.9-1.15) Activated Partial Thromboplast Time 96.3 SEC (24.5-34.5) Urine Color Yellow (Yellow) Urine Clarity Clear (Clear) Urine pH 6.0 (5.0-9.0) Urine Specific [place] > 1.035 (1.001-1.035) Urine Protein Trace (Negative) Urine Ketones 1+ (Negative) Urine Blood 1+ /uL (Negative) Urine Nitrite Negative (Negative) Urine Bilirubin Negative (Negative) Urine Urobilinogen Normal mg/dL (Negative) Urine Leukocyte Esterase Negative /uL (Negative) Urine RBC 8 /hpf (0 - 3) Urine Microscopic WBC 1 /HPF (0-3) Urine Squamous Epithelial Cells None seen /hpf (<5) Urine Bacteria Many /hpf (None Seen) Urine Mucus Few (None Seen) Urine Sperm Present /hpf (None Seen) Urine Glucose Normal mg/dL (Normal) Troponin I High Sensitivity 2390 ng/L (</=54) Test 07/24/25 08:48 07/24/25 08:44 07/24/25 07:56 Influenza Type A Antigen Negative (Negative) Influenza Type B Antigen Negative (Negative) SARS-CoV-2 Antigen (Rapid) Negative (NEGATIVE) B-Type Natriuretic Peptide 139.86 pg/mL (0-100) Triglycerides Level 113 mg/dL (< 150) Cholesterol Level 117 mg/dL (< 200) LDL Cholesterol 57 mg/dL (< 100) HDL Cholesterol 41 mg/dL (40-59) Thyroid Stimulating Hormone (TSH) 2.74 uIU/mL (0.55-4.78) Other Laboratory Tests 07/26/25 05:32 Brief Hx & Hospital Course: Patient is a 70-year-old male with a medical history of COPD, hyperlipidemia, PTSD was transferred to the hospital from [facility] after patient went there with a chief complaint of chest pain which was typical and troponins were elevated. On arrival to the ED in this facility ECG did not show any acute intracranial abnormality. Troponins elevated and were trending up following which patient was started on heparin and cardiology were consulted. Patient underwent coronary angiogram with left heart catheterization which showed mid to distal RCA 99% stenosis and 2 ESTELLA were placed after intravascular lithotripsy. Patient will be started on dual antiplatelet therapy with the aspirin and Plavix, beta sabina metoprolol succinate 25 mg daily. Echocardiogram showed LVEF 45% and the patient will be started on Jardiance 10 mg daily. Patient is sent home in stable condition and advised to follow up with the PCP at [facility] in 1 week and also appointment will be made with the discharge clinic to follow up in 1 week. Skin - Patients skin is warm and dry. HEENT - normocephalic, atraumatic, moist mucous membranes, no conjunctival pallor, no scleral icterus. Neck - full ROM, no LAD, no JVD Pulmonary - B/L clear breath sounds without any wheezing or rales cardiovascular - regular S1,S2 heard, no added sounds, no murmurs heard. GI - soft, nontender abdomen. Bowel sounds normoactive Neurological - Patient is A/O X 4 . Bilateral upper extremity strength 5/5, bilateral lower extremity strength 5/5, no facial droop, normal speech, no tremor, no sensory deficiets. Time spent on discharge planning more than [address] Montaño Consults/Reason for consult Cardiology Consult for NSTEMI Operations or Procedures Operative Report Operative Report CARDIAC CAGE SHIFT MANAGER PROCEDURE REPORT [place], [place] Date of Service: 07/25/25 [facility] [employer] Director: Huber Tompkins MD PROCEDURES PERFORMED: Coronary angiogram, left heart catheterization, conscious sedation administration and supervision, less than 15 minutes; fluoroscopy use and interpretation. sedation 15-30 mins, acute [place] intervention, PTCA1 vessel, PCI 1 vessel, IVL shockwave lithotripsy, US guidance vascular access saved to pacs system PREOPERATIVE DIAGNOSES:NSTEMI POSTOP DIAGNOSIS: NSTEMI DESCRIPTION OF PROCEDURE: The patient or appropriate family signed informed consent understanding the risks, benefits and alternatives of the procedure, they wished to proceed. The patient was brought to the cardiac mechanical shop laborer in n.p.o. state. The patient was prepped in a sterile fashion. Sedation was used per cardiac cath protocol.THERE WERE NO RADIAL KITS SO WE ELECTED FOR FEMORAL ACCESS. I administered 6 mL of 2% lidocaine to the right groing. Under fluor and US guidance I identified a patent but calcified R SEARCH PLANNER and . With an antegrade front wall puncture. I cannulated the right common femoral artery and placed a 6-[place]. . Next, iliofemoral angio performed showing appropriate arteriotomy site. Next, a - 6French JR4 JL4 and JR4 guide and were used for coronary angiogram At the completion of procedure, all guides and wires were removed, and there were no immediate complications. 6 f angioseal used for closure FINDINGS: RCA: Moderate vessel off the right sinus of Valsalva, there is a long dissected mid to distal RCA 99% stenosis . this lesion is close to 50 mm in length and very tight . LEFT MAIN: Moderate size left main, it bifurcates into LAD and circumflex. no severe stenosis . CIRCUMFLEX: Moderate caliber vessel coming off the left main with no flow limiting stenosis. LAD: LAD is a moderate caliber vessel coming of the left main. no severe stenosis. D1 has a 80% stenosis INTERVENTION: We decided to proceed with coronary intervention. I started with a 6F __JR4 __ Guide to intubate the __RCA . Angiomax bolus and gtt was started. Following this, I decided to wire using an .014 BMW across the culprit lesion with ease. At this time, we tried to use a 2.0 balloon but it wouldnt cross so we inflated this baloon up to 8 atms twice over 15 seconds. then i used a 1.5 x 15 mm balloon and inflated to 20 atms with 3 inflations. then i brought a 2.5 x 20 mm balloon and inflated to 16 atms with 3 separate inflatiosn. we performed balloon angioplasty with a _2.5 x 12 mm balloon by shockVerimatrix medical IVL balloon up to __3__ ATMS over __15__ seconds with __10 pulses each for total of 40 pulses__ number of inflations. Following this, I decided to place a stent using a 3.0 x 38 mm distal stent mm onyx____ stent inflated up to __18___ ATMS over 15 seconds with two separate inflations. Following this, the stent balloon removed and angio performed showing 0% residual stenosis. Then i placed a 3.0 x 26 mm ESTELLA with 2 mm overlap and inflated to 18 atms with 2 inflations each 15 seconds. then balloon removed and angio shows 0% stenosis. CONCLUSIONS: 1. sp pci to acutely dissected NSTEMI 99% high risk RCA leison and placement of 2 ESTELLA after intravascular lithotripsy PLAN: Aggressive risk factor modification and medical management for the patient. DAPT x 1 year uninterrupted HUBER TOMPKINS MD Jul 25, 2025 16:02 Condition at Discharge: Good Final Diagnosis/Problems List Acute coronary syndrome NSTEMI type 1 Coronary artery disease s/p PCI with 2 ESTELLA Discharge Disposition: Home Discharge Instruct/Medications Diet: Cardiac 2g Na,low cholest Activity: No Restrictions, As Tolerated Activity comment: please discharge once medication is bedside Follow Up/Referral: follow up in [facility] Medications: as per EMR Scheduled Aspirin (Aspir-Low), 81 MG PO DAILY Atorvastatin Calcium (Atorvastatin Calcium), 80 MG PO DAILY, (Reported) Atorvastatin Calcium (Atorvastatin Calcium), 80 MG PO DAILY Clopidogrel Bisulfate (Clopidogrel), 75 MG PO DAILY Metoprolol Succinate (Metoprolol Succinate Er), 25 MG PO DAILY Quetiapine Fumerate (Quetiapine Fumarate), 200 MG PO HS Discharge Statement: "Patient was advised to return to the ER or call 911 if any headaches, dizziness, shortness of breath, chest pain, abdominal pain, bleeding, fevers, or worsening of medical condition. Patient was counseled about treatment plan, medications, possible side effects, patientverbalized understanding. All questions were answered to the best of my ability. This discharge took greater then 30 minutes in planning, reviewing documentation, counseling the patient, and discussing with other team members." ASSESSMENT ASSESSMENT Assessment Acute chest pain, likely NSTEMI type 1 Visit Coding STANDARD RES Billing Provider: JUAN JOSE MONTAÑO MD Date of Service if different f: Jul 26, 2025 Common Visit Codes: 29834-INF/OBS DISCH DAY >30min ELIS ORTIZ RESIDENT Jul 26, 2025 17:10
[2025-07-27] VITALS (10 sets, daily range): BP systolic 107–135; BP diastolic 78–92; PULSE 80–106; RESP 16–18; TEMP 97.5–98.3; O2SAT 93–99
--- NOTE | 2025-07-27 07:52 | DVHPN2 ---
Progress Note Date Seen: Jul 27, 2025 Medical Necessity Reason Pt with a Central, PICC or Fol: No Subjective Patient reports: Feels better Objective vital signs Vital Sign Date Time Temp Pulse Resp B/P (MAP) Pulse Ox O2 Delivery O2 Flow Rate FiO2 07/27/25 06:45 100 16 99 07/27/25 06:39 Room Air 0.0 07/27/25 06:39 21 07/27/25 05:00 98.3 107/78 (88) 98.3 Total Intake and Output 07/26/25 07/26/25 07/27/25 15:00 23:00 07:00 Intake Total 750 ml 120 ml Output Total 850 ml Balance -100 ml 120 ml medications Current Medications Medications Dose Ordered Sig/Delfin Route Start Time Stop Time Status Last Admin Dose Admin Nitroglycerin 0.4 mg Q5MINP PRN SL 07/24/25 08:30 Levalbuterol HCl 0.625 mg Q8HR NEB 07/24/25 14:00 07/27/25 06:39 0.625 MG Ipratropium [place] 0.5 mg Q8HR NEB 07/24/25 14:00 07/27/25 06:39 0.5 MG Ondansetron HCl 4 mg Q6HPRN PRN IV 07/24/25 08:30 07/24/25 11:09 4 MG Pantoprazole Sodium 40 mg DAILY IV 07/24/25 10:00 07/26/25 09:36 40 MG Atorvastatin Calcium 80 mg HS PO 07/25/25 22:00 07/26/25 21:13 80 MG Aspirin 81 mg DAILY PO 07/25/25 10:00 07/26/25 09:38 81 MG Morphine Sulfate 2 mg Q30M PRN IV 07/24/25 11:15 07/26/25 01:59 2 MG Clopidogrel Bisulfate 75 mg DAILY PO 07/27/25 10:00 Metoprolol Succinate 25 mg DAILY PO 07/27/25 10:00 Examination: GENERAL:Abnormal, HEENT:Abnormal, LUNGS:Abnormal, CVS:Abnormal, ABDOMEN:Abnormal laboratory and microbiology Laboratory Tests 07/26/25 05:32 Test 07/26/25 05:32 Range/Units Serum Glucose 76 74-106 mg/dL Problem List/Assessment/Plan Problem List/Assessment/Plan nstemi acs cad htn HL s/p pci to RCA 99% dissected vessel and placement of 2 ESTELLA for acute [place] cont dapt statin fu with [facility] cards [facility] week after dc BB dc home when stable needs his DAPT on dc Plan discussed with: Patient Date of Service: Jul 27, 2025 Billing Provider: NORMAN TOMPKINS MD Common Visit Codes: NOT BILLABLE NORMAN TOMPKINS MD Jul 27, 2025 07:52
[2025-07-27] MEDS: METOPROLOL SUCCINATE XL 50 MG TAB PO SCH (10:21)
[2025-07-27] MEDS: CLOPIDOGREL BISULFATE 75 MG TAB PO SCH (10:22)
--- NOTE | 2025-07-27 17:20 | DVHPNRES ---
Progress Note Date Seen: Jul 27, 2025 Resident Creating Document: LYNNE STAHL RESIDENT Medical Necessity Reason Pt with a Central, PICC or Fol: No Subjective Review of Systems Yoan Blackwell is a 70-year-old male who was brought by EMS to the ED with the chief complaint of chest pain and was transferred from [facility]. Patient reported he started to have chest pain about 3-4 days ago when he was moving in his mattress, reported chest pain to be substernal across his whole chest, pressure-like, nonradiating, intermittent , worsens on exertion and improves with rest, improved on sublingual nitroglycerin. Patient has a history of COPD, 50 pack year smoking history but denied any history of previous [place], stroke, hypertension. On arrival patient's EKG was seen to be sinus rhythm without any ST or T-wave changes, troponins elevated and trended up. Cardiology evaluated the patient and he underwent left heart catheterization today with placement of 2 stents in RCA. Medical history: COPD, hyperlipidemia, PTSD Surgical history: Left knee surgery, jaw surgery, cervical spine surgery Social history: Patient quit drinking about 4 months ago, quit smoking 6-7 years ago but has a history of 50 pack year tobacco use, occasional marijuana use, denies any other drug use Family history: Mother has diabetes, brain hemorrhage in father Home medications: Quetiapine, albuterol as needed, maintenance inhaler Allergies: No known allergies Patient seen and examined at bedside. Patient is alert and oriented to time, place person and responding to all questions. Eyes: No Pain, No Vision change, No Conjunctivae inflammation, No Eyelid inflammation, No Redness ENT: No Ear pain, No Ear discharge, No Nose pain, No Nose discharge, No Nose congestion, No Mouth pain, No Mouth swelling, No Throat pain, No Throat swelling Cardiovascular: No Chest Pain, No Palpitations, No Orthopnea, No Paroxysmal No Dyspnea, No Edema, No Lt Headedness Respiratory: No Cough, No Dry, No Shortness of breath, No SOB with exertion, No Wheezing, No Hemoptysis, No Pleuritic Pain, No Sputum Gastrointestinal: No Nausea, No Vomiting, No Abdominal Pain, No Diarrhea, No Constipation, No Melena, No Hematochezia Genitourinary: No Dysuria, No Frequency, No Incontinence, No Hematuria, No Retention 07/27/25- patient was seen and evaluated at bedside today. Central line from right IJ was discontinued. The patient was discharged home in a stable condition with meds at bedside. He was recommended to follow up with [facility] assistant banquet manager within 1 week and in discharge Clinic in 1 week. Objective vital signs Vital Sign Date Time Temp Pulse Resp B/P (MAP) Pulse Ox O2 Delivery O2 Flow Rate FiO2 07/27/25 13:43 84 16 99 07/27/25 13:37 Room Air* 0 N/A Nasal Cannula* 07/27/25 12:53 97.5 126/92 (103) 97.5 Total Intake and Output 07/26/25 07/26/25 07/27/25 15:00 23:00 07:00 Intake Total 750 ml 120 ml Output Total 850 ml Balance -100 ml 120 ml Examination General Appearance: Cooperative. Well developed. Well nourished. NAD Head Exam: Normal inspection Neck Exam: Normal inspection. Non-tender. Normal alignment Pulmonary/Respiratory: Chest non-tender. Clear bilateral breath sounds, no crackles, no wheezing. Cardiovascular/Chest: Regular rate and rhythm. No murmurs. No JVD. Peripheral Pulses: 2+ Radial (R). 2+ Radial (L). 2+ Pedal (R). 2+ Pedal (L) Abdominal Exam: Normal bowel sounds. Soft. normal abdomen, no visible veins, Nontender. No hepatospenomegaly. No masses Ankle Exam: Negative ankle edema Lower extremities: Negative lower extremity edema Neuro/Mental Status: A&O x4. Coherent. Thoughts/Psych: Normal thought pattern. Appropriate mood and affect. Good judgement and insight Skin Exam: Normal inspection. Normal color. Warm. Dry laboratory and microbiology Laboratory Tests 07/26/25 05:32 Test 07/26/25 05:32 Range/Units Serum Glucose 76 74-106 mg/dL Labs and/or images reviewed: Labs reviewed by me, Image(s) reviewed by me Problem List/Assessment/Plan Problem List/Assessment/Plan # Acute chest pain likely due to below # NSTEMI likely type 1 s/p PCI with 2 stents in RCA - tropes on arrival were 2676, 2759 and 2390 - BNP 139 - was given loading dose of aspirin and atorvastatin - echo showed LVEF 45%, hypokinetic apex, mild LVH - left heart catheterization on 07/25/2025- pci to acutely dissected NSTEMI 99% high risk RCA leison and placement of 2 ESTELLA after intravascular lithotripsy - DAPT for 1 year uninterrupted # COPD, no exacerbation - med nebs with ipratropium and levalbuterol q.8 hours PRN # Dyslipidemia - lipitor 80 mg hs p.o. # history of PTSD Goals of care discussed with the patient for more than 20 minutes, full code Plan discussed with Plan discussed with: Patient, Spouse, Other Visit Coding STANDARD RES Billing Provider: JUAN JOSE ROWE MD Date of Service if different f: Jul 27, 2025 Common Visit Codes: [id number] INP/OBS CARE(HIGH) LYNNE STAHL RESIDENT Jul 27, 2025 17:20
--- NOTE | 2025-07-29 12:23 | ECG ---
[facility] Test Date: 2025-07-24 Test Time: 05:21:24 Pat Name: YEU ATKINS Department: ED Room: 0217T A Gender: M Care Professional: KIMO : [id number] Requested By: LUISITO PINON Order Number: [id number] Reading MD: Miguel A De Leon Measurements Intervals [place] Rate: 70 P: 48 WI: 144 QRS: 65 QRSD: 92 T: 88 QT: 377 QTc: 407 Interpretive Statements Sinus rhythm Electronically Signed On 08-04-2025 18:33:40 PST by Miguel A De Leon Please click the below link to view image of tracing.
== END 2025-07-27 14:45 | disposition home or self-care (01) | DRG 323 ==
LOC: ER 04:25 → OVERFLOW 08:28 → TELE-CENTR 23:56
PROVIDERS: ADMIT Student in an Organized Health Care Education/Training Program; ATTEND Student in an Organized Health Care Education/Training Program
PROC: 02HV33Z Insertion of Infusion Device into Superior Vena Cava, Percutaneous Approach (ICD-10-PCS; 2025-07-24)
PROC: 02F03ZZ Fragmentation in Coronary Artery, One Artery, Percutaneous Approach (ICD-10-PCS; principal; 2025-07-25)
PROC: 027035Z Dilation of Coronary Artery, One Artery with Two Drug-eluting Intraluminal Devices, Percutaneous Approach (ICD-10-PCS; 2025-07-25)
PROC: B211YZZ Fluoroscopy of Multiple Coronary Arteries using Other Contrast (ICD-10-PCS; 2025-07-25)
DX: I21.4 Non-ST elevation (NSTEMI) myocardial infarction (principal); I50.21 Acute systolic (congestive) heart failure; I11.0 Hypertensive heart disease with heart failure; J44.9 Chronic obstructive pulmonary disease, unspecified; E78.5 Hyperlipidemia, unspecified; F43.10 Post-traumatic stress disorder, unspecified; I25.10 Atherosclerotic heart disease of native coronary artery without angina pectoris; Z87.891 Personal history of nicotine dependence; F12.90 Cannabis use, unspecified, uncomplicated; Z83.3 Family history of diabetes mellitus; Z79.899 Other long term (current) drug therapy
CPT/HCPCS: 36415; 36556; 71045; 80053; 80061; 81001; 83880; 84443; 84484; 85025; 85610; 85730; 86850; 86900; 86901; 87426; 87804; 92941; 92972; 93005; 93306; 93454; 94640; 96365; 96375; 99152; 99291; C1894; G0378; J2250; J2405; J2470; Q9967